=== PATIENT | female | born 1985 | race Two or more races ===

== ENCOUNTER 2018-05-01 21:48 | Emergency (ER) | payer MEDICAID, OTHER ==
[~2018-05-01] VITALS: Ht 152.4 cm; Wt 70.3 kg
[2018-05-01 23:22] LABS: Basophils # (auto) 0.1 uL; Basophils % (auto) 0.5 % (0.0-2.0); Eosinophils # (auto) 0.1 uL; Eosinophils % (auto) 0.5 % (0.0-7.0); Hematocrit 38.6 % (36.0-46.0); Hemoglobin 12.9 g/dL (12.2-16.2); Lymphocytes # (auto) 1.9 uL; Lymphocytes % (auto) 16.4 % (10.0-50.0); Mean Corpuscular Hemoglobin 29.8 pg (28.0-32.0); Mean Corpuscular Hgb Conc. 33.5 g/dL (32.0-36.0); Mean Corpuscular Volume 88.8 fL (80.0-100.0); Monocytes # (auto) 0.5 uL; Monocytes % (auto) 4.5 % (0.0-12.0); Neutrophils % (auto) 78.1 % (37.0-80.0); Platelet Count (auto) 309 10^3/uL (140-450); Red Blood Cells 4.35 10^6/uL (4.0-5.20); Red Cell Distribution Width 13.1 % (11.8-14.3); White Blood Cell 11.5 10^3/uL (4.4-10.8)
[2018-05-01 23:40] LABS: Urine Amorphous Crystal FEW /hpf (None Seen); Urine Bacteria MANY /hpf (None Seen); Urine Blood 1+ /uL (Negative); Urine Mucus FEW (None Seen); Urine Specific Gravity 1.021 (1.001-1.035); Urine WBC 10 /hpf (0 - 5)
[2018-05-01 23:44] LABS: Albumin 3.6 g/dL (3.4-5.0); Calcium 8.7 mg/dL (8.5-10.1); Potassium 3.9 mmol/L (3.5-5.1)
[2018-05-01 23:54] LABS: BUN/Creatinine Ratio 9.5; Bilirubin, Total 0.4 mg/dL (0.2-1.0); Total Protein 8.1 g/dL (6.4-8.2)
[2018-05-02] MEDS ORDERED: PHENAZOPYRIDINE HCL 100 MG TAB PO ONE (04:15)
[2018-05-02] MEDS ORDERED: cefTRIAXone SOD 1,000 MG VL IM ONE (04:15)
[2018-05-02 04:50] VITALS: BP 111/78
== END 2018-05-02 05:37 | disposition home or self-care (01) ==
LOC: ER 21:52
DX: N39.0 Urinary tract infection, site not specified (principal); M54.5 Low back pain; Z32.02 Encounter for pregnancy test, result negative
CPT/HCPCS: 36415; 74018; 80053; 81001; 81025; 85025; 96372; 99284; J0696

== ENCOUNTER 2022-06-20 22:55 | Emergency (ER) | payer MEDICAID ==
[~2022-06-20] VITALS: Ht 152.4 cm; Wt 87.6 kg
[2022-06-21 03:07] VITALS: BP 130/79
== END 2022-06-21 03:07 | disposition home or self-care (01) ==
LOC: ER 22:55
DX: J06.9 Acute upper respiratory infection, unspecified (principal); Z20.822 Contact with and (suspected) exposure to COVID-19
CPT/HCPCS: 36415; 87426; 87804